=== PATIENT | female | born 1970 | race American Indian/Alaskan Native ===

== ENCOUNTER 2018-05-06 04:09 | Emergency (ER) | payer SELFPAY ==
[2018-05-06] MEDS ORDERED: ZOFRAN ODT PO ONE (05:05)
[2018-05-06] MEDS ORDERED: ZOFRAN ODT ONE (05:09)
[2018-05-06] MEDS: NACL 0.9% 1000 ML 1,000 ML IV ONE ×2 (05:10→09:00)
[2018-05-06 05:32] LABS: Basophils # (Auto) 0.1 K/mm3 (0.0-0.1); Basophils % (Auto) 0.8 % (0.0-1.8); Eosinophils # (Auto) 0.2 K/mm3 (0.0-0.4); Eosinophils % (Auto) 1.2 % (0.0-4.3); Lymphocytes # (Auto) 2.6 K/mm3 (1.2-5.4); Lymphocytes % (Auto) 19.4 % (13.4-35.0); Mean Corpuscular HGB Conc 30 % (30-34); Mean Corpuscular Volume 71 fl (79-97); Monocytes # (Auto) 1.3 K/mm3 (0.0-0.8); Monocytes % (Auto) 9.4 % (0.0-7.3); Platelet Count 544 K/mm3 (140-440); Red Blood Count 4.37 M/mm3 (3.65-5.03)
[2018-05-06 05:34] LABS: Hemoglobin 9.2 gm/dl (10.1-14.3); Mean Corpuscular Hemoglobin 21 pg (28-32); Red Cell Distribution Width 21.2 % (13.2-15.2)
[2018-05-06 05:46] LABS: Alanine Aminotransferase 18 units/L (7-56); Albumin 4.1 g/dL (3.9-5); BUN/Creatinine Ratio 12; Blood Urea Nitrogen 7 mg/dL (7-17); Calcium 9.4 mg/dL (8.4-10.2); Hemolysis Index 4
[2018-05-06 08:44] LABS: Bilirubin,Urine NEG (Negative); Blood,Urine NEG (Negative); Color,Urine Yellow (Yellow); Mucus,Urine 1+ /HPF; Urobilinogen,Urine < 2.0 mg/dL (<2.0)
[2018-05-06] MEDS ORDERED: ZOFRAN ONE (08:49)
[2018-05-06] MEDS ORDERED: MORPHINE IV ONE (08:57)
[2018-05-06] MEDS ORDERED: PROTONIX IV ONE (08:57)
[2018-05-06] MEDS ORDERED: ZOSYN/NS 4.5GM/100ML 4.5 GM/100 ML VIAL IV ONE (08:58)
[2018-05-06] MEDS ORDERED: ZOFRAN IV ONE (09:12)
--- NOTE | 2018-05-06 09:56 | Ultrasound Report ---
ULTRASOUND ABDOMEN LIMITED: TECHNIQUE: Transabdominal ultrasound with color Doppler interrogation. HISTORY: right upper quadrant abdominal pain. COMPARISON: none. FINDINGS: LIVER: Normal. BILIARY SYSTEM: Normal. PANCREAS: Normal. RIGHT KIDNEY: Normal. PROXIMAL AORTA: Normal. ASCITES: None. IMPRESSION: Unremarkable exam.
[2018-05-06] MEDS ORDERED: DILAUDID ONE ×2 (10:15→13:26)
[2018-05-06] MEDS ORDERED: DILAUDID IV ONE ×2 (10:28→13:43)
[2018-05-06 11:31] VITALS: BP 150/78
--- NOTE | 2018-05-06 14:12 | Emergency Department Report ---
ED Abdominal Pain HPI - General Chief Complaint: Abdominal Pain Stated Complaint: ABD PAIN Time Seen by Provider: 05/06/18 08:46 Source: patient Mode of arrival: Ambulatory Limitations: No Limitations - History of Present Illness Initial Comments: 47 year old female complains of discomfort largely in the epigastric to right upper quadrant area. She describes it as constant dull and nonradiating. She states that about 9:30 yesterday and that she ate at about 5:30. She does not report any chronic problems with indigestion. The patient does report a history of diabetes (type II on metformin). She does not report a history of gastroparesis. She does have a history of GERD. She denies any fever or chills. She has had some nausea and vomiting and diarrhea since yesterday. She reports no signs of GI bleeding. She states that she has not had symptoms like this before. The patient initially informed me that she has never had a colonoscopy or scope test in the past. However, shortly prior to discharge she did inform me that she has had an EGD by a GI doctor on [facility]. Complaint: abdominal pain -: Gradual Location: LUQ, RUQ Radiation: none Migration to: no migration Severity: moderate Severity scale (0 -10): 7 Quality: aching Consistency: constant Improves With: nothing Worsens With: nothing Associated Symptoms: nausea, vomiting, diarrhea - Related Data Previous Rx's Medication Instructions Recorded Last Taken Type Lansoprazole 30 mg PO BID #30 capsule. 05/06/18 Unknown Rx Allergies Allergy/AdvReac Type Severity Reaction Status Date / Time No Known Allergies Allergy Verified 05/06/18 05:12 ED Review of Systems ROS: Stated complaint: ABD PAIN Other details as noted in HPI Constitutional: denies: chills, fever Eyes: denies: eye pain, eye discharge, vision change ENT: denies: ear pain, throat pain Respiratory: denies: cough, shortness of breath, wheezing Cardiovascular: denies: chest pain, palpitations Endocrine: no symptoms reported Gastrointestinal: as per HPI, abdominal pain, nausea, vomiting, diarrhea Genitourinary: denies: urgency, dysuria, discharge Musculoskeletal: denies: back pain, joint swelling, arthralgia Skin: denies: rash, lesions Neurological: denies: headache, weakness, paresthesias Psychiatric: denies: anxiety, depression Hematological/Lymphatic: denies: easy bleeding, easy bruising ED Past Medical Hx - Past Medical History Previous Medical History?: Yes Hx Hypertension: Yes Hx Diabetes: Yes Hx GERD: Yes - Surgical History Past Surgical History?: No - Social History Smoking Status: Never Smoker Substance Use Type: None - Medications Home Medications: Home Medications Medication Instructions Recorded Confirmed Last Taken Type Lansoprazole 30 mg PO BID #30 capsule. 05/06/18 Unknown Rx ED Physical Exam - General Limitations: No Limitations General appearance: alert, in no apparent distress - Head Head exam: Present: atraumatic, normocephalic - Eye Eye exam: Present: normal appearance. Absent: scleral icterus - ENT ENT exam: Present: mucous membranes moist - Neck Neck exam: Present: normal inspection. Absent: tenderness, meningismus - Respiratory Respiratory exam: Present: normal lung sounds bilaterally. Absent: respiratory distress - Cardiovascular Cardiovascular Exam: Present: regular rate, normal rhythm. Absent: systolic murmur, diastolic murmur, rubs, gallop - GI/Abdominal GI/Abdominal exam: Present: soft, tenderness (Discomfort to Palpation in the Epigastric Region. Negative Fischer's.), normal bowel sounds. Absent: distended , guarding, rebound, rigid, organomegaly, mass, bruit, pulsatile mass, hernia - Extremities Exam Extremities exam: Present: normal inspection - Back Exam Back exam: Present: normal inspection - Neurological Exam Neurological exam: Present: alert, oriented X3, CN II-XII intact. Absent: motor sensory deficit - Psychiatric Psychiatric exam: Present: normal affect, normal mood - Skin Skin exam: Present: warm, dry, intact, normal color. Absent: rash ED Course Vital Signs 05/06/18 05/06/18 05/06/18 04:44 08:18 08:28 Temperature 98.4 F Pulse Rate 85 86 Respiratory 16 16 Rate Blood Pressure 143/85 Blood Pressure 157/96 [Right] O2 Sat by Pulse 98 100 99 Oximetry 05/06/18 05/06/18 05/06/18 08:30 08:46 09:00 Temperature Pulse Rate Respiratory Rate Blood Pressure 157/96 157/96 157/96 Blood Pressure [Right] O2 Sat by Pulse 100 97 95 Oximetry 05/06/18 05/06/18 05/06/18 09:46 10:00 10:16 Temperature Pulse Rate Respiratory Rate Blood Pressure 150/88 150/88 150/78 Blood Pressure [Right] O2 Sat by Pulse 99 96 95 Oximetry 05/06/18 05/06/18 05/06/18 11:24 13:45 14:15 Temperature Pulse Rate 71 Respiratory 17 18 18 Rate Blood Pressure 150/78 Blood Pressure [Right] O2 Sat by Pulse 94 Oximetry - Reevaluation(s) Reevaluation #1: Patient's ultrasound was reported as negative. A CT of the abdomen and pelvis is yet pending. The patient was given analgesia. She was treated with empiric antibiotics and Protonix. 05/06/18 14:11 Reevaluation #2: Patient looks well and she is resting comfortably. Her abdomen is benign. She is appropriate for outpatient management. I told her that an EGD would be recommended. 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 05/06/18 15:24 ED Medical Decision Making - Lab Data Result diagrams: 05/06/18 05:04 05/06/18 05:04 Laboratory Results - last 24 hr 05/06/18 05/06/18 05/06/18 05:04 05:04 08:20 WBC 13.5 H RBC 4.37 Hgb 9.2 L Hct 31.0 MCV 71 L MCH 21 L MCHC 30 RDW 21.2 H Plt Count 544 H Lymph % (Auto) 19.4 Ray % (Auto) 9.4 H Eos % (Auto) 1.2 Baso % (Auto) 0.8 Lymph # 2.6 Ray # 1.3 H Eos # 0.2 Baso # 0.1 Seg Neutrophils % 69.2 Seg Neutrophils # 9.4 H Sodium 137 Potassium 4.6 Chloride 98.7 Carbon Dioxide 25 Anion Gap 18 BUN 7 Creatinine 0.6 L Estimated GFR > 60 BUN/Creatinine Ratio 12 Glucose 118 H Calcium 9.4 Total Bilirubin 0.40 AST 26 ALT 18 Alkaline Phosphatase 81 Total Protein 8.2 Albumin 4.1 Albumin/Globulin Ratio 1.0 Urine Color Yellow Urine Turbidity Clear Urine pH 7.0 Ur Specific [place] 1.019 Urine Protein 100 mg/dl Urine Glucose (UA) Neg Urine Ketones Neg Urine Blood Neg Urine Nitrite Neg Urine Bilirubin Neg Urine Urobilinogen < 2.0 Ur Leukocyte Esterase Neg Urine WBC (Auto) 1.0 Urine RBC (Auto) 3.0 U Epithel Cells (Auto) 7.0 Urine Mucus 1+ - EKG Data -: EKG Interpreted by Me EKG shows normal: sinus rhythm, axis, intervals, QRS complexes, ST-T waves - Radiology Data Radiology results: report reviewed (radiologist states consider gastritis but otherwise no acute process) Critical care attestation.: If time is entered above; I have spent that time in minutes in the direct care of this critically ill patient, excluding procedure time. 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 Avoid alcohol. See GI specialist for further evaluation. Return to the emergency department increased pain or any acute change. Return also if you see any signs of bleeding or you vomit up any dark material. Prescriptions: Lansoprazole 30 mg PO BID #30 capsule. Referrals: AMAIRANI ANGELES MD [Primary Care Provider] - 3-5 Days [facility] [Provider Group] - 2-3 Days Time of Disposition: 15:33
--- NOTE | 2018-05-06 14:50 | Cat Scan Report ---
CT ABDOMEN PELVIS WITH CONTRAST: HISTORY: Epigastric pain. COMPARISON: none. TECHNIQUE: Helical CT in 1.25mm intervals following IV contrast. Sagittal and coronal reconstructions. FINDINGS: Lung bases: Normal. Liver: Normal. Biliary system: Normal. Pancreas: Normal. Spleen: Normal. Kidneys/ureters/bladder: 2 cm exophytic cyst from the right kidney is noted. Otherwise the kidneys, ureters and bladder are unremarkable. Adrenal glands: Normal. Aorta: Normal. Intestines: There is suggestion of mild to moderate thickening of the gastric antrum. A mild gastritis could be considered. The remaining bowel loops are normal caliber and wall thickness. Scattered diverticula are noted in the sigmoid colon. No focal inflammation. Appendix: Normal. Pelvic viscera: A 3.5 cm right ovarian cyst is identified. The uterus and left adnexa are unremarkable. Ascites: None. Adenopathy: None. Musculoskeletal: Normal. IMPRESSION: Consider a mild gastritis. 3.5 cm right ovarian cyst. 2 cm right renal cyst. Mild sigmoid diverticulosis.
[2018-05-06] MEDS ORDERED: NORCO 5/325 PO ONE (15:36)
== END 2018-05-06 16:02 | disposition home or self-care (01) ==
LOC: ED 04:09
DX: K29.00 Acute gastritis without bleeding (principal); E11.9 Type 2 diabetes mellitus without complications; I10 Essential (primary) hypertension; K21.9 Gastro-esophageal reflux disease without esophagitis
CPT/HCPCS: 36415; 74177; 76705; 80053; 81001; 83690; 85025; 93005; 93010; 96361; 96365; 96375; 96376; 99284; C9113; J1170; J2270; J2405; J2543; J7030; Q9967; Q0162

== ENCOUNTER 2019-02-06 04:35 | Inpatient (IN) | payer MEDICAID ==
[2019-02-06] MEDS ORDERED: NORCO 5/325 PO ONE (05:09)
[2019-02-06] MEDS ORDERED: PEPCID PO ONE (05:09)
--- NOTE | 2019-02-06 05:47 | XRay Report ---
PROCEDURE: XR CHEST 1V AP TECHNIQUE: A portable view of the chest was obtained. HISTORY: Chest Pain COMPARISONS: None FINDINGS: The heart size and vascularity appear normal. The lungs are clear. Pleural fluid is not seen. The bon es and soft tissues do not show any acute changes. IMPRESSION: No acute cardiopulmonary process.. This document is electronically signed by Brcue Gan MD., February 06 2019 05:45:13 AM ET
[2019-02-06 06:11] LABS: Basophils % (Auto) 0.4 % (0.0-1.8); Eosinophils # (Auto) 0.2 K/mm3 (0.0-0.4); Eosinophils % (Auto) 1.4 % (0.0-4.3); Hematocrit 35.9 % (30.3-42.9); Hemoglobin 11.9 gm/dl (10.1-14.3); Lymphocytes # (Auto) 2.4 K/mm3 (1.2-5.4); Lymphocytes % (Auto) 23.1 % (13.4-35.0); Mean Corpuscular HGB Conc 33 % (30-34); Mean Corpuscular Volume 89 fl (79-97); Monocytes % (Auto) 9.5 % (0.0-7.3); Platelet Count 406 K/mm3 (140-440); Red Blood Count 4.03 M/mm3 (3.65-5.03); Red Cell Distribution Width 17.9 % (13.2-15.2)
[2019-02-06 06:12] LABS: Alanine Aminotransferase 9 units/L (7-56); Albumin 3.9 g/dL (3.9-5); BUN/Creatinine Ratio 9; Blood Urea Nitrogen 7 mg/dL (7-17); Calcium 8.9 mg/dL (8.4-10.2); Hemolysis Index 11
--- NOTE | 2019-02-06 06:30 | Emergency Department Report ---
ED Chest Pain HPI - General Chief Complaint: Chest Pain Stated Complaint: CHEST PAIN Time Seen by Provider: 02/06/19 06:08 Source: patient, EMS Mode of arrival: Stretcher Limitations: No Limitations - History of Present Illness Initial Comments: 48-year-old female presents to ED with complaint of chest pain. Reports onset of chest pain last night at around 10 PM. States pain is constant, located in left upper chest, radiating into her left arm and left neck. Patient states pain was sharp in nature. Patient denies shortness of breath, vomiting. Reports diaphoresis. EMS was called, patient given aspirin and nitroglycerin. She reports relief of pain with these medications. Patient reports history of hypertension, diabetes, hypercholesterolemia. States has never had a stress test in the past. Reports tobacco use. MD Complaint: chest pain -: Last night Onset: during rest Pain Location: left chest Pain Radiation: LUE, neck Severity: severe Severity scale (0 -10): 8 Quality: sharp Consistency: constant, now resolved Improves With: nitroglycerin Worsens With: nothing re: diaphoresis. denies: nausea, vomting, dyspnea Treatments Prior to Arrival: aspirin, nitroglycerin - Related Data Home Medications Medication Instructions Recorded Confirmed Last Taken Ascorbic Acid [Vitamin C] 500 mg PO DAILY 02/06/19 02/06/19 Unknown Docusate Sodium [Colace] 100 mg PO DAILY PRN 02/06/19 02/06/19 Unknown Ferrous Sulfate [Feosol] 325 mg PO QDAY 02/06/19 02/06/19 Unknown Gabapentin [Neurontin] 300 mg PO TID 02/06/19 02/06/19 Unknown Metoprolol [Lopressor TAB] 50 mg PO DAILY 02/06/19 02/06/19 Unknown Promethazine [Phenergan] 25 mg PO Q8HR PRN 02/06/19 02/06/19 Unknown metFORMIN [Glucophage] 500 mg PO BID 02/06/19 02/06/19 Unknown Allergies Allergy/AdvReac Type Severity Reaction Status Date / Time No Known Allergies Allergy Verified 05/06/18 05:12 Heart Score - HEART Score History: Moderately suspicious EKG: Non-specific Age: 45-65 Risk factors: > 3 risk factors or hx of atherosclerotic disease Troponin: < normal limit HEART Score: 5 ED Review of Systems ROS: Stated complaint: CHEST PAIN Other details as noted in HPI Comment: All other systems reviewed and negative Constitutional: denies: chills, fever Respiratory: denies: cough, shortness of breath Cardiovascular: chest pain Gastrointestinal: denies: nausea, vomiting Neurological: denies: headache, weakness, numbness ED Past Medical Hx - Past Medical History Previous Medical History?: Yes Hx Hypertension: Yes Hx Diabetes: Yes Hx GERD: Yes Additional medical history: fibroids, hyperlipidemia - Surgical History Past Surgical History?: No - Social History Smoking Status: Current Every Day Smoker Substance Use Type: None - Medications Home Medications: Home Medications Medication Instructions Recorded Confirmed Last Taken Type Ascorbic Acid [Vitamin C] 500 mg PO DAILY 02/06/19 02/06/19 Unknown History Docusate Sodium [Colace] 100 mg PO DAILY PRN 02/06/19 02/06/19 Unknown History Ferrous Sulfate [Feosol] 325 mg PO QDAY 02/06/19 02/06/19 Unknown History Gabapentin [Neurontin] 300 mg PO TID 02/06/19 02/06/19 Unknown History Metoprolol [Lopressor TAB] 50 mg PO DAILY 02/06/19 02/06/19 Unknown History Promethazine [Phenergan] 25 mg PO Q8HR PRN 02/06/19 02/06/19 Unknown History metFORMIN [Glucophage] 500 mg PO BID 02/06/19 02/06/19 Unknown History ED Physical Exam - General Limitations: No Limitations General appearance: alert, in no apparent distress - Head Head exam: Present: atraumatic, normocephalic - Eye Eye exam: Present: normal appearance - ENT ENT exam: Present: mucous membranes moist - Neck Neck exam: Present: normal inspection - Respiratory Respiratory exam: Present: normal lung sounds bilaterally. Absent: respiratory distress - Cardiovascular Cardiovascular Exam: Present: regular rate, normal rhythm - GI/Abdominal GI/Abdominal exam: Present: soft. Absent: distended, tenderness - Extremities Exam Extremities exam: Present: normal inspection - Neurological Exam Neurological exam: Present: alert, oriented X3 - Psychiatric Psychiatric exam: Present: normal affect, normal mood - Skin Skin exam: Present: warm, dry, intact, normal color ED Course Vital Signs 02/06/19 02/06/19 02/06/19 05:36 05:45 05:56 Temperature 98.2 F Pulse Rate 83 Respiratory 18 19 19 Rate Blood Pressure 140/85 Blood Pressure 140/85 [Left] O2 Sat by Pulse 99 100 Oximetry 02/06/19 02/06/19 02/06/19 06:00 06:45 07:00 Temperature Pulse Rate 76 79 Respiratory 21 16 21 Rate Blood Pressure 144/88 144/88 Blood Pressure [Left] O2 Sat by Pulse 96 99 Oximetry 02/06/19 02/06/19 02/06/19 07:58 08:00 09:00 Temperature Pulse Rate 83 87 86 Respiratory 23 12 Rate Blood Pressure 154/86 136/88 147/84 Blood Pressure [Left] O2 Sat by Pulse 95 93 Oximetry 02/06/19 02/06/19 02/06/19 10:00 11:00 12:00 Temperature Pulse Rate 82 78 76 Respiratory 11 L 15 22 Rate Blood Pressure 147/84 140/65 141/76 Blood Pressure [Left] O2 Sat by Pulse 98 98 100 Oximetry 02/06/19 02/06/19 02/06/19 12:17 12:32 13:00 Temperature Pulse Rate 74 80 Respiratory 18 17 Rate Blood Pressure 131/78 131/70 Blood Pressure 131/78 [Left] O2 Sat by Pulse 97 97 Oximetry ED Medical Decision Making - Lab Data Result diagrams: 02/06/19 05:21 02/06/19 05:21 - EKG Data -: EKG Interpreted by Oh EKG shows normal: sinus rhythm, axis, intervals, QRS complexes Rate: normal - EKG Data Interpretation: other (T wave inversions inferolaterally) - Radiology Data Radiology results: report reviewed, image reviewed - Medical Decision Making - EKG shows inferolateral T wave inversions - trop negative - CXR nml - chest pain improved w/nitro - hx of HTN, hyperlipidemia, obesity, tobacco use - will admit to hospitalist for cardiac workup - Differential Diagnosis ACS, GERD, pneumonia, pulm edema Critical care attestation.: If time is entered above; I have spent that time in minutes in the direct care of this critically ill patient, excluding procedure time. ED Disposition Clinical Impression: Chest pain Disposition: OP ADMIT IP TO THIS HOSP Is pt being admited?: Yes Condition: Stable Time of Disposition: 06:32
[2019-02-06] MEDS ORDERED: ZOFRAN IV PRN (07:48)
[2019-02-06] MEDS ORDERED: SODIUM CHLORIDE FLUSH SYRINGE 10 ML IV PRN ×2 (07:48→15:19)
[2019-02-06] MEDS ORDERED: TYLENOL PO PRN ×2 (07:48→11:31)
[2019-02-06] MEDS ORDERED: NITROSTAT SL PRN (07:52)
--- NOTE | 2019-02-06 11:18 | History and Physical Report ---
History of Present Illness Date of examination: 02/06/19 Date of admission: 02/06/19 07:48 Chief complaint: Chest pain History of present illness: Patient is 48-year-old with hypertension, hyperlipidemia, diabetes mellitus type 2, morbid obesity. She presented with chest pain. Chest pain is 8 out of 10 left-sided, sharp pain. Chest pain radiates to left upper extremity and neck. The pain is worse on exertion. She denies shortness of breath, nausea, vomiting or diaphoresis. She was seen and evaluated in ED. Cardiac enzymes normal. Will admit for further evaluation Past History Past Medical History: diabetes, hypertension, hyperlipidemia Past Surgical History: No surgical history Social history: , lives with family, smoking (Smokes 1 pack cigarettes a day), full code. denies: alcohol abuse, IV drug use Family history: diabetes, hypertension Medications and Allergies Allergies Allergy/AdvReac Type Severity Reaction Status Date / Time No Known Allergies Allergy Verified 05/06/18 05:12 Home Medications Medication Instructions Recorded Confirmed Last Taken Type Ascorbic Acid [Vitamin C] 500 mg PO DAILY 02/06/19 02/07/19 02/05/19 08:50 Hi story Docusate Sodium [Colace CAP] 100 mg PO DAILY PRN 02/06/19 02/06/19 Unknown History Ferrous Sulfate [Feosol 325 MG tab] 325 mg PO QDAY 02/06/19 02/07/19 02/05/19 09:00 History Gabapentin [Neurontin] 300 mg PO TID 02/06/19 02/07/19 02/06/19 08:25 History Metoprolol [Lopressor TAB] 50 mg PO DAILY 02/06/19 02/07/19 02/05/19 09:00 History Promethazine [Phenergan SUPPOS] 25 mg PO Q8HR PRN 02/06/19 02/06/19 Unknown History metFORMIN [Glucophage] 500 mg PO BID 02/06/19 02/07/19 02/06/19 08:45 History Famotidine [Pepcid] 20 mg PO BID #30 tablet 02/07/19 Unknown Rx Active Meds: Active Medications Acetaminophen (Tylenol) 650 mg PO Q4H PRN PRN Reason: Pain MILD(1-3)/Fever >100.5/POPE Morphine Sulfate (Morphine) 2 mg IV Q4H PRN PRN Reason: Pain, Moderate (4-6) Nitroglycerin (Nitrostat) 0.4 mg SL .Q5MIN PRN PRN Reason: Chest Pain Last Admin: 02/06/19 07:58 Dose: 0.4 mg Documented by: Ondansetron HCl (Zofran) 4 mg IV Q8H PRN PRN Reason: Nausea And Vomiting Sodium Chloride (Sodium Chloride Flush Syringe 10 Ml) 10 ml IV BID BELINDA Sodium Chloride (Sodium Chloride Flush Syringe 10 Ml) 10 ml IV PRN PRN PRN Reason: LINE FLUSH Review of Systems All systems: negative (No fever, no cough, no abd pain, no urinary symptoms. All other systems reviewed and are negative) Exam - Physical Exam Narrative exam: GEN: Not in acute distress, sitting up in bed, Obese HEENT: Normocephalic, atraumatic, Neck: supple, No JVD heart: S1 and S2 reg, no murmurs, rubs or gallop Lungs: Clear to auscultation bilaterally, no wheeze Abd:soft, non tender, non distended, normal bowel sounds Ext: No edema,no clubbing, no cyanosis, Neuro:Awake,alert,oriented X 3, no focal signs, moves all ext Psych: normal mood - Constitutional Vitals: Temp Pulse Resp BP Pulse Ox 98.2 F 83 16 154/86 96 02/06/19 05:36 02/06/19 07:58 02/06/19 06:45 02/06/19 07:58 02/06/19 06:00 General appearance: Present: no acute distress - EENT Eyes: Present: PERRL ENT: hearing intact, clear oral mucosa - Neck Neck: Present: supple, normal ROM - Respiratory Respiratory effort: normal Respiratory: bilateral: CTA - Cardiovascular Rhythm: regular Heart Sounds: Present: S1 & S2 - Extremities Extremities: no ischemia, No edema, normal temperature, Full ROM - Abdominal General gastrointestinal: Present: soft, non-tender, non-distended, normal bowel sounds - Integumentary Integumentary: Present: clear, warm - Musculoskeletal Musculoskeletal: strength equal bilaterally - Psychiatric Psychiatric: appropriate mood/affect, intact judgment & insight - Neurologic Neurologic: moves all extremities, other (AAO x 3) Results - Labs CBC & Chem 7: 02/07/19 06:00 02/07/19 06:00 Labs: Abnormal lab results 02/06/19 02/06/19 Range/Units 05:21 05:21 RDW 17.9 H (13.2-15.2) % [place] % (Auto) 9.5 H (0.0-7.3) % [place] # 1.0 H (0.0-0.8) K/mm3 Glucose 144 H (65-100) mg/dL Assessment and Plan Chest pain Admit to Telemetry r/o ACS Aspirin given by EMS Continue Aspirin daily HTN Monitor BP Diabetes mellitus type 2 Fingerstick qac and hs Hyperlipidemia Smoking I counseled her on quitting smoking Full code status
[2019-02-06] MEDS ORDERED: D50W (25GM) Syringe IV PRN (11:31)
[2019-02-06] MEDS ORDERED: COLACE PO PRN (11:33)
[2019-02-06] MEDS ORDERED: PHENERGAN PR PRN (11:33)
[2019-02-06] MEDS ORDERED: NON-FORMULARY (Ascorbic Acid [Vitamin C] 500 MG) PO SCH (11:45)
[2019-02-06] MEDS: SODIUM CHLORIDE FLUSH SYRINGE 10 ML IV SCH ×2 (12:26→22:39)
[2019-02-06] MEDS ORDERED: MORPHINE ONE (12:28)
[2019-02-06] MEDS ORDERED: ZOFRAN ONE (12:29)
[2019-02-06] MEDS: MORPHINE IV PRN ×2 (12:31→22:29)
[2019-02-06] MEDS: LOPRESSOR PO SCH (12:32)
[2019-02-06] MEDS: FEOSOL PO SCH (13:32)
[2019-02-06] MEDS ORDERED: NEURONTIN ONE (14:16)
[2019-02-06] MEDS: NEURONTIN PO SCH ×2 (14:22→22:25)
[2019-02-06 16:06] LABS: Basophils # (Auto) 0.1 K/mm3 (0.0-0.1); Basophils % (Auto) 0.6 % (0.0-1.8); Eosinophils # (Auto) 0.2 K/mm3 (0.0-0.4); Eosinophils % (Auto) 1.8 % (0.0-4.3); Hemoglobin 11.4 gm/dl (10.1-14.3); Lymphocytes # (Auto) 3.4 K/mm3 (1.2-5.4); Lymphocytes % (Auto) 27.3 % (13.4-35.0); Mean Corpuscular HGB Conc 33 % (30-34); Mean Corpuscular Volume 89 fl (79-97); Monocytes # (Auto) 1.2 K/mm3 (0.0-0.8); Monocytes % (Auto) 9.4 % (0.0-7.3); Platelet Count 405 K/mm3 (140-440); Red Blood Count 3.93 M/mm3 (3.65-5.03); Red Cell Distribution Width 18.2 % (13.2-15.2)
[2019-02-06 16:54] LABS: BUN/Creatinine Ratio 13; Blood Urea Nitrogen 9 mg/dL (7-17); Calcium 8.9 mg/dL (8.4-10.2); Hemolysis Index 12
[2019-02-07 07:04] LABS: Basophils # (Auto) 0.1 K/mm3 (0.0-0.1); Basophils % (Auto) 0.7 % (0.0-1.8); Eosinophils # (Auto) 0.2 K/mm3 (0.0-0.4); Eosinophils % (Auto) 1.9 % (0.0-4.3); Hematocrit 33.4 % (30.3-42.9); Hemoglobin 11.5 gm/dl (10.1-14.3); Lymphocytes # (Auto) 2.9 K/mm3 (1.2-5.4); Lymphocytes % (Auto) 28.5 % (13.4-35.0); Mean Corpuscular HGB Conc 34 % (30-34); Mean Corpuscular Volume 88 fl (79-97); Monocytes # (Auto) 0.9 K/mm3 (0.0-0.8); Monocytes % (Auto) 8.8 % (0.0-7.3); Platelet Count 377 K/mm3 (140-440); Red Blood Count 3.82 M/mm3 (3.65-5.03); Red Cell Distribution Width 17.7 % (13.2-15.2)
[2019-02-07 07:31] LABS: BUN/Creatinine Ratio 15; Blood Urea Nitrogen 9 mg/dL (7-17); Calcium 8.8 mg/dL (8.4-10.2); Hemolysis Index 8
[2019-02-07] MEDS ORDERED: LEXISCAN IV ONE ×2 (09:45)
[2019-02-07] MEDS ORDERED: ECOTRIN PO SCH (10:00)
[2019-02-07] MEDS ORDERED: VITAMIN C PO SCH (12:00)
[2019-02-07] MEDS: LOPRESSOR PO SCH (12:02)
[2019-02-07] MEDS: FEOSOL PO SCH (12:03)
[2019-02-07] MEDS: NEURONTIN PO SCH (12:03)
[2019-02-07] MEDS: MORPHINE IV PRN (12:06)
[2019-02-07] MEDS: SODIUM CHLORIDE FLUSH SYRINGE 10 ML IV SCH (12:07)
[2019-02-07 12:22] VITALS: BP 146/86
--- NOTE | 2019-02-07 14:18 | Discharge Summary ---
Providers - Providers Date of Admission: 02/06/19 07:48 Date of discharge: 02/07/19 Attending physician: SHIVAM CULLEN Primary care physician: TAHIR VARGHESE MD Hospitalization Condition: Fair Hospital course: Patient is 48-year-old with hypertension, hyperlipidemia, diabetes mellitus type 2, morbid obesity. She presented to ED with chest pain. She was seen and evaluated in ED. Cardiac enzymes were normal. She was admitted to rule out acute coronary syndrome. Stress test was done was normal. Just been determined to be noncardiac due to GERD. She was subsequently discharged home on Pepcid to follow as an outpatient. Disposition: TO HOME OR SELFCARE - Discharge Diagnoses (1) GERD (gastroesophageal reflux disease) Status: Acute (2) HTN (hypertension) Status: Acute (3) Chest pain Status: Acute (4) Diabetes mellitus type 2 in obese Status: Acute Core Measure Documentation - Palliative Care Palliative Care/ Comfort Measures: Not Applicable - Core Measures Any of the following diagnoses?: none Exam - Constitutional Vitals: Temp Pulse Resp BP Pulse Ox 97.0 F L 70 18 146/86 99 02/07/19 04:08 02/07/19 12:13 02/07/19 04:08 02/07/19 12:13 02/07/19 14:14 Plan Activity: no restrictions Diet: low fat, low cholesterol, low salt, diabetic Additional Instructions: 1.Follow up with PCP or [place] [facility] in 1 week. Follow up with: PRIMARY CARE, [Primary Care Provider] - 3-5 Days Prescriptions: Famotidine [Pepcid] 20 mg PO BID #30 tablet
--- NOTE | 2019-02-08 00:13 | Treadmill Report ---
THALLIUM STRESS TEST REPORT LEFT VENTRICLE: Left ventricular chamber size is within normal spread. Perfusion study demonstrates homogeneous uptake of the tracer in all segments, no significant defects identified. Gated analysis demonstrates normal left ventricular systolic function, ejection fraction 63%. CONCLUSION: Normal myocardial perfusion study. JOB# [id number] CA/NTS
== END 2019-02-07 16:08 | disposition home or self-care (01) | DRG 313 ==
LOC: ED 04:35 → 4A 07:48
PROVIDERS: ADMIT Internal Medicine; ATTEND Internal Medicine
DX: R07.9 Chest pain, unspecified (principal); E11.9 Type 2 diabetes mellitus without complications; I10 Essential (primary) hypertension; F17.210 Nicotine dependence, cigarettes, uncomplicated; E78.5 Hyperlipidemia, unspecified; K21.9 Gastro-esophageal reflux disease without esophagitis; E66.9 Obesity, unspecified; Z83.3 Family history of diabetes mellitus; Z82.49 Family history of ischemic heart disease and other diseases of the circulatory system; Z79.899 Other long term (current) drug therapy; Z68.41 Body mass index [BMI] 40.0-44.9, adult
CPT/HCPCS: 36415; 71045; 78452; 80048; 80053; 82550; 82962; 84484; 85025; 93005; 93010; 93017; G0378; A9502; J2270; J2405; J2785